=== PATIENT | female | born 1995 | race Caucasian/White ===

== ENCOUNTER 2016-08-24 17:07 | Emergency (ER) | payer BC, OTHER ==
[~2016-08-24] VITALS: Ht 162.6 cm; Wt 52.3 kg
[~2016-08-24 17:07] MED LIST: BENADRYL25 M2 PO; CEPHALEXIN500 M1 PO; CLEOCIN HCL300 MG PO; EZFE 200200 MG PO; PREDNISONE20 MG PO; PRENATAL MVI PO; TRIAMCINOLONE A15 G1 TP; ZYRTEC 10MG10 MG PO
[2016-08-24 17:09] VITALS: BP 142/58; TEMP 98.2
[2016-08-24 18:52] VITALS: PULSE 88
== END 2016-08-24 18:53 | disposition home or self-care (01) ==
LOC: COL.ER 17:07
DX: R21 Rash and other nonspecific skin eruption (principal)
CPT/HCPCS: J1100